=== PATIENT | female | born 1960 | race Hispanic/Latino ===

== ENCOUNTER → 2017-08-31 | Outpatient (CLI) | payer MEDICARE, SELFPAY ==
[~2017-08-31] MED LIST: ACET1TAB27 PO; ALBU18HF7 IH; DONE5TAB33 PO; GABA-529 PO; HCTZ 12.5 MG PO; LISI40TA4 PO; METO25TA6 PO; salbutamol IH
== END | disposition home or self-care (01) ==
LOC: RAH 13:50
PROVIDERS: ATTEND Internal Medicine
DX: Z12.31 Encounter for screening mammogram for malignant neoplasm of breast (principal)
CPT/HCPCS: 77067

== ENCOUNTER → 2018-09-17 | Outpatient (CLI) | payer MEDICARE | END | disposition home or self-care (01) | LOC: RAH 08:26 | PROVIDERS: ATTEND Family Medicine | DX: R10.32 Left lower quadrant pain (principal) | CPT/HCPCS: 76700 ==

== ENCOUNTER 2018-12-13 12:39 | Emergency (ER) | payer MEDICARE ==
[2018-12-13 13:37] LABS: BILIRUBIN,URINE Small (NEGATIVE); COLOR,URINE Dark Yellow (YELLOW); GLUCOSE, URINE (UA) Negative (NEGATIVE); KETONES,URINE Trace mg/dL (NEGATIVE); LEUKOCYTE ESTERASE ,URINE Trace (NEGATIVE); NITRATE,URINE Positive (NEGATIVE); OCCULT BLOOD,URINE Negative (NEGATIVE); PROTEIN,URINE Trace mg/dL (NEGATIVE)
[2018-12-13 13:42] LABS: APPEARANCE,URINE SLIGHTLY CLOUDY (CLEAR)
[2018-12-13] MEDS ORDERED: IPRATROPIUM/ALBUTEROL SULFATE 3 ML SOLUTION IH ONE (13:44)
[2018-12-13 13:45] LABS: AMPHET/METH SCREEN,URINE NEGATIVE (NEGATIVE); BACTERIA,URINE Many /HPF (None Seen); BARBITURATE SCREEN, URINE NEGATIVE (NEGATIVE); BENZODIAZEPINES SCREEN,URINE NEGATIVE (NEGATIVE); CANNABINOID SCREEN,URINE POSITIVE (NEGATIVE); COCAINE SCREEN,URINE NEGATIVE (NEGATIVE); OPIATE SCREEN,URINE NEGATIVE (NEGATIVE); PHENCYCLIDINE SCREEN,URINE NEGATIVE (NEGATIVE); RBC,URINE None Seen /HPF (0-1)
[2018-12-13 13:47] LABS: EOSINOPHILS % (AUTO) 9.4 % (0.0-8.0); HEMATOCRIT 40.2 % (36-48); LYMPHOCYTES % (AUTO) 25.2 % (21.0-51.0); MEAN CORPUSCULAR HEMOGLOBIN 31.2 pg (27.0-33.0); MEAN CORPUSCULAR HGB CONC 33.7 g/dL (32.0-36.0); MEAN CORPUSCULAR VOLUME 92.6 fL (79-99); MONOCYTES % (AUTO) 10.5 % (3.0-13.0); NEUTROPHILS % (AUTO) 53.9 % (40.0-77.0); PLATELET COUNT (AUTO) 275 K/uL (130-400); RED BLOOD CELL COUNT(AUTO) 4.35 MIL/uL (4.00-5.50); RED CELL DISTRIBUTION WIDTH 14.5 % (11.0-15.5); WHITE BLOOD COUNT (AUTO) 5.8 K/uL (4.8-10.8)
[2018-12-13 13:59] LABS: INR 1.02 (0.85-1.15); PARTIAL THROMBOPLASTIN TIME 26.8 SEC (26.3-35.5); PROTHROMBIN TIME 10.7 SEC (9.6-11.6)
[2018-12-13 14:08] LABS: B-TYPE NATRIURETIC PEPTIDE 70 pg/mL (0-100)
[2018-12-13] MEDS ORDERED: METHYLPREDNISOLONE SOD SUCC 125MG/2ML VIAL ONE (14:12)
[2018-12-13] MEDS ORDERED: LEVOFLOXACIN 500 MG TABLET ONE (15:32)
== END 2018-12-13 15:51 | disposition home or self-care (01) ==
LOC: EDH 12:39
DX: J44.1 Chronic obstructive pulmonary disease with (acute) exacerbation (principal); N39.0 Urinary tract infection, site not specified; R42 Dizziness and giddiness; F41.9 Anxiety disorder, unspecified; J45.909 Unspecified asthma, uncomplicated; Z90.49 Acquired absence of other specified parts of digestive tract; Z88.6 Allergy status to analgesic agent; Z98.890 Other specified postprocedural states; Z87.891 Personal history of nicotine dependence; Z98.84 Bariatric surgery status
CPT/HCPCS: 36415; 71045; 80305; 81001; 82550; 83880; 84484; 85025; 85610; 85730; 87077; 87088; 87186; 87804 ×2; 93005; 94640; 96374; 99285; J2930

== ENCOUNTER 2023-12-19 10:02 | Emergency (ER) | payer OTHER ==
[~2023-12-19] VITALS: Ht 172.7 cm; Wt 90.7 kg
[~2023-12-19 10:02] MED LIST changes: +ACET-2079 PO; -ACET1TAB27 PO; +AMLO-257 PO; +BUSP30TA2 PO; +CALC-1009 PO; -DONE5TAB33 PO; +FLUO20CA30 PO; -GABA-529 PO; +GINK120C PO; -HCTZ 12.5 MG PO; -LISI40TA4 PO; -METO25TA6 PO
[2023-12-19 10:50] LABS: BASOPHILS # (AUTO) 0.05 K/uL (0.00-0.20); BASOPHILS % (AUTO) 0.7 % (0.0-5.0); EOSINOPHILS # (AUTO) 0.15 K/uL (0.00-0.70); EOSINOPHILS % (AUTO) 2.1 % (0.0-8.0); HEMATOCRIT 33.4 % (36-48); IMMATURE GRANULOCYTE ABSOLUTE 0.03 K/uL (0-1); LYMPHOCYTES # (AUTO) 1.8 K/uL (1.0-4.8); LYMPHOCYTES % (AUTO) 24.5 % (21.0-51.0); MEAN CORPUSCULAR VOLUME 84.3 fL (79-99); MONOCYTES # (AUTO) 0.6 K/uL (0.1-1.0); MONOCYTES % (AUTO) 8.8 % (3.0-13.0); NEUTROPHILS # (AUTO) 4.6 K/uL (1.8-7.7); NEUTROPHILS % (AUTO) 63.5 % (40.0-77.0); PLATELET COUNT (AUTO) 342 K/uL (130-400); RED BLOOD CELL COUNT(AUTO) 3.96 MIL/uL (4.00-5.50); RED CELL DISTRIBUTION WIDTH 16.8 % (11.0-15.5); WHITE BLOOD COUNT (AUTO) 7.3 K/uL (4.8-10.8)
[2023-12-19 11:02] LABS: CREATININE 0.7 mg/dL (0.5-1.0); POTASSIUM 3.9 mmol/L (3.5-5.1)
[2023-12-19 11:03] LABS: APPEARANCE,URINE CLOUDY (CLEAR); BILIRUBIN,URINE NEGATIVE (NEGATIVE); COLOR,URINE LIGHT-YELLOW (YELLOW); GLUCOSE, URINE (UA) NEGATIVE (NEGATIVE); KETONES,URINE NEGATIVE (NEGATIVE); LEUKOCYTE ESTERASE ,URINE 25 Leu/uL (NEGATIVE); NITRATE,URINE NEGATIVE (NEGATIVE); PH,URINE 5.5 (5.0-8.0); PROTEIN,URINE 10 mg/dL (NEGATIVE); UROBILINOGEN,URINE 0.2 mg/dL (0.2-1.0)
[2023-12-19 11:18] LABS: ADD UA MICROSCOPIC YES
[2023-12-19] MEDS: ONDANSETRON 4MG INJ IVP ONE (11:34)
[2023-12-19] MEDS: KETOROLAC 15MG/ML VIAL (15MG/ML) IV ONE (11:35)
[2023-12-19] MEDS: MORPHINE 4 MG SYG IVP ONE (11:35)
[2023-12-19 11:41] LABS: BACTERIA,URINE Few /HPF (None Seen); RBC,URINE 0-1 /HPF (0-1); SQUAMOUS EPITHELIAL CELL,UR Few /HPF (0-2); WBC,URINE 0-1 /HPF (0-1)
[2023-12-19 11:42] LABS: SPERM,URINE Few /HPF (None Seen)
[2023-12-19 11:52] LABS: ALBUMIN 3.7 g/dL (3.5-5.0); BILIRUBIN,DIRECT 0.1 mg/dL (0.0-0.3); BILIRUBIN,TOTAL 0.5 mg/dL (0.2-1.0); TOTAL PROTEIN, SERUM 6.8 g/dL (6.0-8.3)
[2023-12-19 12:08] VITALS: BP 120/61; PULSE 94; RESP 18; O2SAT 99
[2023-12-19] MEDS ORDERED: POLY17PO4 PO (13:56)
== END 2023-12-19 14:30 | disposition home or self-care (01) ==
LOC: EDH 10:02
DX: R10.9 Unspecified abdominal pain (principal); F41.9 Anxiety disorder, unspecified; J44.9 Chronic obstructive pulmonary disease, unspecified; F32.A Depression, unspecified; I10 Essential (primary) hypertension; K21.9 Gastro-esophageal reflux disease without esophagitis; Z79.899 Other long term (current) drug therapy; Z88.6 Allergy status to analgesic agent; Z90.49 Acquired absence of other specified parts of digestive tract
CPT/HCPCS: 99285; 74176; 96374; 96375; 80076; 84484; 80048; 83690; 85025; 81001; 36415; 93005; J2405; J2270; J1885

== ENCOUNTER → 2025-01-25 | Outpatient (CLI) | payer OTHER ==
[~2025-01-25] MED LIST changes: -FLUO20CA30 PO; +FLUO20CA32 PO; -GINK120C PO; +GINK120C3 PO; +IOHEXOL-350 75 ML VIAL IV ONE; +POLY17PO4 PO
--- NOTE | 2025-01-26 06:43 | HMCIMG ---
EXAM: CT Abdomen and Pelvis with oral and intravenous contrast. CLINICAL HISTORY: Bariatric surgery status. Post gastric surgery syndrome. Functional dyspepsia. TECHNIQUE: Post contrast thin collimated axial CT images of the abdomen and pelvis were obtained with sagittal and coronal reformatted images also submitted. CT scan is done according to ALARA (As Low As Reasonably Achievable). COMPARISON: CT abdomen and pelvis dated 12/19/2023. FINDINGS: The included lungs are clear. Mild right diaphragmatic eventration. Calcified granulomas in the left hepatic lobe. No focal abnormality within the gallbladder, pancreas, spleen, or adrenals. Subcentimeter nonenhancing Bosniak class I cysts in the bilateral kidneys. The urinary bladder is suboptimally distended and grossly unremarkable. The uterus and ovaries are atrophied. Status post gastric bypass. The bowel loops are normal in caliber. No obvious bowel wall thickening, dilatation, or obstruction. Presumed post appendectomy status. Uncomplicated diverticula around the distal descending and proximal sigmoid colon. Mild calcific atherosclerotic disease in the abdominal aorta and its branches. No pathological lymphadenopathy in the abdomen or pelvis. No ascites or pneumoperitoneum. No acute bony abnormality is evident. Multiple old healed left rib fractures. Mild degenerative osseous changes. Tiny, uncomplicated fat-containing umbilical hernia. IMPRESSIONS: No acute process in the abdomen or pelvis. Status post gastric bypass. No bowel inflammation or obstruction is evident. Uncomplicated diverticula around the distal descending and proximal sigmoid colon. Calcified granulomas in the left hepatic lobe. Multiple old healed left rib fractures. Simple renal cortical cyst bilaterally. No gross interval changes compared to the previous CT dated 12/19/2023. /[place]
== END | disposition home or self-care (01) ==
LOC: RAH 10:08
PROVIDERS: ATTEND Surgery
DX: K57.30 Diverticulosis of large intestine without perforation or abscess without bleeding (principal); N28.1 Cyst of kidney, acquired; K91.1 Postgastric surgery syndromes; K30 Functional dyspepsia; K75.3 Granulomatous hepatitis, not elsewhere classified; I70.0 Atherosclerosis of aorta; Z98.84 Bariatric surgery status
CPT/HCPCS: 74177; Q9967